=== PATIENT | female | born 1970 | race Caucasian/White ===

== ENCOUNTER 2018-04-30 14:51 | Outpatient (CLI) | payer BC, SELFPAY ==
--- NOTE | 2018-04-30 16:10 | DI.MAMMO_ITS ---
SYMPTOMS/DIAGNOSIS: SCREENING, Z12.39 MAMMOGRAM: Mammograms were interpreted according to the usual protocol including computer analysis with CAD system, tomosynthesis and C view imaging. The breasts are heterogeneously dense. No dominant mass or clumped microcalcification identified in either breast. Current examination is compared with the previous examinations including August 2015 and there has been no gross interval change in appearance in comparison with the previous studies. CONCLUSION: No specific evidence of malignancy at this time. Routine screening examinations are suggested at yearly intervals due to the family history of breast carcinoma. Category 1, breast density category C. MQSA ASSESSMENT OF FINDINGS: Negative. Category 1. Patient will receive a letter notifying them of these results. Bi-RADS category C. The breasts are heterogeneously dense, which may obscure small masses.
== END 2018-04-30 15:11 ==
PROVIDERS: PCP Nurse Practitioner; Visit Provider Nurse Practitioner
DX: Z12.31 Encounter for screening mammogram for malignant neoplasm of breast (principal); Z80.3 Family history of malignant neoplasm of breast
CPT/HCPCS: 77063; 77067

== ENCOUNTER 2018-11-30 09:47 | Outpatient (REF) | payer BC, SELFPAY ==
[2018-11-30 13:59] LABS: Anion Gap 9.8 mmol/L (3-11); BUN 16 mg/dL (7-18); CO2 27.2 mmol/L (21.0-32.0); CREATININE 0.72 mg/dL (0.55-1.02); Chloride 102 mmol/L (98-107); Cholesterol 187 mg/dL (50-200); Glucose 98 mg/dL (70-100); HDL Cholesterol 96 mg/dL (40-60); LDL CHOLESTEROL 78 mg/dL (<100); Magnesium 2.2 mg/dL (1.8-2.4); Potassium 4.6 mmol/L (3.5-5.1); Sodium 139 mmol/L (136-145); Triglyceride 29 mg/dL (30-150); Vitamin B12 348 pg/mL (193-986)
== END 2018-11-30 10:07 ==
LOC: NCHCN 09:47
PROVIDERS: PCP Nurse Practitioner; Visit Provider Nurse Practitioner Family
DX: K21.9 Gastro-esophageal reflux disease without esophagitis (principal); K22.70 Barrett's esophagus without dysplasia; Z00.00 Encounter for general adult medical examination without abnormal findings; Z13.220 Encounter for screening for lipoid disorders
CPT/HCPCS: 80048; 80061; 83721; 82607; 83735

== ENCOUNTER 2018-12-13 00:24 | Outpatient (CLI) | payer BC, SELFPAY ==
--- NOTE | 2018-12-13 14:00 | DI.RAD_ITS ---
SYMPTOMS/DIAGNOSIS: OSTEOPENIA, M85.80; H/O TOTAL HYSTERECTOMY, Z90.710 DEXA SCAN: DEXA scan was performed according to the usual protocol. The findings for the lumbar spine scanning are a T score of -2.2. Previous examination of January 2009 showed a T score of -1.6 for lumbar spine scanning. Left hip scanning shows a T score of -2.7 and a left femoral neck T score of - 2.5. Previous examination of 2008 showed left hip T score of -2.1. Left forearm scanning shows a T score of -2.3. CONCLUSION: Findings consistent with osteoporosis according to the WHO criteria. The lateral vertebral scanogram shows no evidence of a vertebral compression fracture.
== END 2018-12-13 00:44 ==
PROVIDERS: PCP Nurse Practitioner Family; Visit Provider Nurse Practitioner Family
DX: M81.0 Age-related osteoporosis without current pathological fracture (principal); M85.88 Other specified disorders of bone density and structure, other site
CPT/HCPCS: 77080

== ENCOUNTER 2019-01-04 10:08 | Day surgery (SDC) | payer BC, SELFPAY ==
[2019-01-04 10:36] VITALS: BP 105/65; PULSE 71; RESP 17; TEMP 36
[2019-01-04] MEDS: Lactated Ringers 1,000 ML 80 ML IV (10:55)
--- NOTE | 2019-01-04 12:15 | STOM_PTH ---
PATIENT: Noemi Malave LOC: [facility] U#:[id number] AGE/SX: 48/F ROOM: RE01/04/[address]: Ml Burks : 1970 BED: DIS: 01/04/2019 SPEC #: [id number] RECD: 01/04/19 16:39 STATUS: MAKAYLA RE #: [id number] JANET: 01/04/19 12:[address]: Ml Burks DEPT: Surgical Specimen RECD BY: Emily Benton ENTERED: 01/04/19 16:41 SP TYPE: STOMACH OTHR DR: Peggy Marroquin Tissues: 1 - BIOPSY BOWEL 2 - STOMACH BIOPSY 3 - STOMACH BIOPSY 4 - ESOPHAGUS BIOPSY Procedures: GROSS AND MICRO LEVEL 4 Comments: [id number]
--- NOTE | 2019-01-04 12:44 | W.PM.DSUDISC ---
Discharge Plan Disposition Patient Disposition: HOME Condition: Good Discharge Details Reason For Visit: EGD Attending Provider: Ml Burks Primary Care Provider: Peggy Marroquin Home Meds and New Rx's Prescriptions: New Dexilant 60 mg capsule,biphase delayed releas 60 mg PO DAILY Qty: 30 RF: 12 sucralfate [Carafate] 1 gram tablet 1 gm PO QID PRN PRN (Reason: reflux) Qty: 90 RF: 12 nicotine 7 mg/24 hr patch 24 hour 1 patch TD Q24H Qty: 30 RF: 12 Continued Adult Multivitamin Gummies 200 mcg tablet,chewable 200 mcg PO DAILY RF: 0 citalopram 40 MG tablet 40 mg PO DAILY RF: 0 Discontinued pantoprazole [Protonix] 20 MG tablet,delayed release (DR/EC) 20 mg PO DAILY RF: 0 Discharge Instructions Instructions: Cigarette Smoking and Your Health (GEN) Additional Instructions: Findings:Raymond's esophagitis /bile reflux gastritis will send letter w/ Bx results in 2-3 wks Follow up:repeat scope in 3yrs time-path pd stop smoking change meds to carafate adn dexilant Please call if you develop: fevers >101.5 Nausea or Vomiting Abdominal pain that is not transient DAY SURGERY UNIT POST COLONOSCOPY INSTRUCTIONS 1. Because there will be medication in your system for the next 24 hours, you may feel a little sleepy. Your coordination will be affected. Therefore: a. Do not drive or operate dangerous equipment for 24 hours. b. Do not drink alcohol beverages for 24 hours (not even beer). c. Plan to go home and rest for the day. 2. Generally there are no restrictions on your activity after a day or so has gone by, but you may feel a bit fatigued for a few days. 3 After you arrive home you may have a light meal and return to a normal diet as you can tolerate it without feeling sick to your stomach. 4. After surgery, you may feel pain or discomfort. This should be only transient, but if it persists please contact your doctor. 5. If there are any questions regarding the findings of your procedure, please feel free to contact your doctor. 6. If you are unable to contact your doctor with a problem, contact the hospital at [phone]. 7. Continue all your regular medications unless directed otherwise. I understand the above instructions and have no questions. Signature of Patient or Responsible Adult Escort Date/Time Name of Responsible Adult Escort Signature of Nurse Date/Time Stand Alone Forms: DSU Post EGD Instructions, Press Sue (DSU) Activity:: no heavy lifting or strenuous acitivty x 24 hrs Diet:: sm lt meals x 24 hrs Discharge Orders Discharge Orders: Discharge Order (Routine); Ordered 01/04/19 Ordered By: Ml Burks DS: Diagnosis Discharge Diagnosis (1) Raymond's esophagus with esophagitis: Status: Acute (2) Bile reflux gastritis: Status: Acute
--- NOTE | 2019-01-04 13:08 | W.PM.ENDDOP ---
Date of service: 01/04/19 Time of Service: 13:08 Endoscopy Report DATE OF PROCEDURE: 01/04/19 PRE-OP DIAGNOSIS: wylie's POST-OP DIAGNOSIS: other (esophagitis and gastritis/bile reflux ) SURGEON: Ml Burks ANESTHESIA: GETA ESTIMATED BLOOD LOSS: 2 PATHOLOGY: other COMPLICATIONS: None DISPOSITION: same day PROCEDURE DESCRIPTION: After informed consent was obtained the patient was take to the procedure room and placed in a supine position. Monitors were applied and a time out was done. The patients name, date of , procedure type, allergies to medications and metal in their body was reviewed. A bite block was placed and the patient was sedated. Once sedated and comfortable the gastroscope was advanced through the oropharynx which was grossly normal into the esophagus. The proximal and mid-esophagus were nl. In the distal esophagus there was erythema and irritation. There were x2 tongues of Barett's adn moderate esophagitis. There was reflux of bile into the stomach- and moderate gastritis visible. The scope was advanced into the stomach and through the pylorus into the 3rd portion of the duodenum. The duodenum was noted to be nl. Biopsies were done. The scope was retracted back into the stomach and biopsies were done to rule out H. pylori. There were no ulcers. The scope was retroflexed. The cardia and fundus were noted to be normal. There was no hiatal hernia noted. The scope was retracted back into the esophagus and biopsies were done of the GE junction to rule out Wylie's. The Z line was regular. The GE junction was at 38 cm. The scope was removed and the patient was woken up and taken back to [facility] in stable condition. Follow up: Rx changed to Dexilant (from protonix) and added carafate. repeat in 3 yrs. stop smoking- pt given Rx for patches.
[2019-01-04 14:00] VITALS: BP 90/62; PULSE 70; RESP 16; TEMP 36.1; O2SAT 100
== END 2019-01-04 14:15 | disposition home or self-care (01) ==
PROVIDERS: PCP Nurse Practitioner Family; Visit Provider Surgery
PROC: 0DJ68ZZ Inspection of Stomach, Via Natural or Artificial Opening Endoscopic (ICD-10-PCS; CPT 43235; principal; 2019-01-04 11:00)
DX: K22.70 Barrett's esophagus without dysplasia (principal); K31.89 Other diseases of stomach and duodenum; K20.9 Esophagitis, unspecified; F17.210 Nicotine dependence, cigarettes, uncomplicated
CPT/HCPCS: 43239; 88305

== ENCOUNTER 2020-07-01 19:18 | Emergency (ER) | payer BC, SELFPAY ==
[2020-07-01 19:23] VITALS: BP 129/79; PULSE 78; RESP 22; TEMP 36.8; O2SAT 98
--- NOTE | 2020-07-01 19:39 | ED.GENADUL_ITS ---
Discharge Plan Disposition Patient Disposition: HOME Condition: Good Discharge Details Clinical Impression: Contusion of foot Primary Care Provider: Peggy Marroquin ED Provider: Haley Guerrero Home Meds and New Rx's Prescriptions: Continued Adult Multivitamin Gummies 200 mcg tablet,chewable 200 mcg PO DAILY RF: 0 lansoprazole 30 mg capsule,delayed release(DR/EC) 30 mg PO BID Qty: 60 RF: 12 citalopram 40 MG tablet 40 mg PO DAILY RF: 0 Dexilant 60 mg capsule,biphase delayed releas 60 mg PO DAILY Qty: 30 RF: 12 sucralfate [Carafate] 1 gram tablet 1 gm PO QID PRN PRN (Reason: reflux) Qty: 90 RF: 12 nicotine 7 mg/24 hr patch 24 hour 1 patch TD Q24H Qty: 30 RF: 12 Discharge Instructions Instructions: Foot Contusion (ED) Additional Instructions: Encourage rest, ice, elevation. Tylenol and/or ibuprofen as needed for discomfort. You may continue the postoperative shoe to help with discomfort. If your pain is not completely resolved in the next 2 weeks please follow-up with primary care. If you develop any new or worsening symptoms please seek care urgently once again. Referrals: Peggy Marroquin [Primary Care Provider] - Medical Decision Making Patient is pleasant 49-year-old female presents with chief complaint of injured right foot. She reports that she dropped an air Fryer on her foot. Is i ndicating the medial side of the foot is area of discomfort. She denies any numbness but states that she can occasionally have tingling. Pain is worse with dorsiflexion. No other injuries from the incident. On exam, patient appears nontoxic. I not see any large amount of swelling or ecchymosis. She is tender particularly with dorsiflexion against resistance along the proximal aspect of his great toe extending up into the midfoot. She has no pain with palpation of the plantar aspect of the foot. Sensation is intact. 2+ distal pulses and good capillary refill. Patient declines analgesic s, states she has advil at home. X-ray was obtained and reviewed by radiologist: FINDINGS: Bones/joints: No acute displaced fractures or subluxations are identified. The joint spaces are maintained without degenerative changes. Osseous mineralization is normal. The plantar arch is maintained. Soft tissues: No soft tissue swelling is identified. IMPRESSION: No acute displaced fractures or subluxations identified. Discussed the findings with the patient. Patient will be fitted with a postoperative shoe to help with discomfort as ambulation great exacerbates her discomfort. Encourage rest, ice and elevation. Tylenol and ibuprofen for comfort. All questions concerns were addressed and she is in agreement this plan. HPI General Mode of arrival: ambulatory . Date/Time Provider Initiated Documentation: 07/01/20 19:27 . Limitations to Documentation: no limitations . Information obtained by: patient and RN notes reviewed . History of Present Illness 49 year old F presents to the emergency department with the chief complaint of right foot pain, described as severe, with intensity rated at 8. Quality is described as aching, and is localized to the right and lower e xtremity. Patient reports no radiation. Patient started experiencing this minute(s) and it has been constant. Immobilization improves symptom(s), Movement worsens symptoms (dorsiflexion) . Patient notes no other symptoms.. Patient did receive the following treatments prior to arrival, none Related Data Home Medications Medication Instructions Recorded Confirmed citalopram 40 mg PO DAILY 07/21/13 01/14/19 multivitamin with minerals-folic 200 mcg PO DAILY tab 12/28/18 01/14/19 acid 200 mcg chewable tablet Dexilant 60 mg PO DAILY #30 cap 01/04/19 01/14/19 nicotine 1 patch TD Q24H #30 each 01/04/19 01/14/19 sucralfate [Carafate] 1 gm PO QID PRN PRN #90 tab 01/04/19 01/14/19 lansoprazole 30 mg capsule,delayed 30 mg PO BID #60 cap 01/07/19 01/14/19 release Previous Rx's Medication Instructions Recorded Dexilant 60 mg PO DAILY #30 cap 01/04/19 nicotine 1 patch TD Q24H #30 each 01/04/19 sucralfate [Carafate] 1 gm PO QID PRN PRN #90 tab 01/04/19 lansoprazole 30 mg capsule,delayed 30 mg PO BID #60 cap 01/07/19 release Allergies Allergy/AdvReac Type Severity Reaction Status Date / Time meperidine HCl [From Demerol] AdvReac Mild Nausea Verified 01/14/19 09:33 General Stated Complaint: Orthopedic OLAMIDE: 4 Review of Systems Constitutional Constitutional: Reports as per HPI, Denies chills, Denies fever(s), Denies headache(s) and Denies weakness ENT Ears, Nose, Mouth, and Throat: Denies headache(s) Cardiovascular Cardiovascular: Reports as per HPI Respiratory Respiratory: Reports as per HPI and Denies cough Musculoskeletal Musculoskeletal: Reports as per HPI and Denies tingling Integumentary/Breasts Skin/Breast: Reports as per HPI, Denies rash and Denies wounds Neurologic Neurologic: Reports as per HPI, Denies headache(s), Denies tingling, Denies paresthesias and Denies weakness PFS Medical History Anxiety and depression Raymond's esophagus with esophagitis Barretts esophagus Bilateral hearing loss Bile reflux gastritis GERD (gastroesophageal reflux disease) History of postoperative nausea and vomiting Osteopenia Tobacco use Surgical History History of colonoscopy History of esophagogastroduodenoscopy (EGD) History of shoulder surgery 2017 L History of total hysterectomy S/P herniorrhaphy supraumbilical, s/p incarceration. Dr Cristiano Harding, 1970 Social History Smoking/Tobacco Use Status: Current every day Tobacco Type: cigarettes Tobacco: How many years used: 30 Smoking risk assessment performed?: Yes Alcohol Intake: current Alcohol Intake frequency: 0-2 drinks per day Alcohol type: beer and wine Drug use: Never Substance use type: does not use Do you feel safe at home: Yes Do you feel safe in your relationship?: Yes Exam Const General: cooperative, healthy appearing, comfortable, no acute distress, well developed and well groomed Nutritional Appearance: average body habitus and well nourished Orientation: alert and awake Resp Effort & Inspection: normal respiratory effort, able to speak in complete sentences and no respiratory distress Cardio Rate: regular rate Rhythm: regular rhythm Skin General skin exam: no rashes or lesions noted Lesions: no lesions Rashes: no rashes Trauma: no lacerations or abrasions Neuro General: patient alert and patient awake Cognition: normal cognition Speech: speech normal Gait: normal gait Motor: muscle tone normal throughout Sensory Exam: no sensory deficits noted Extrem Ankle/foot/toe images: 1. Area of discomfort. Worse with dorsiflexion and extension against resistance of the great toe. No plantar pain. Normal cap refill. 2+ distal pulses. Full ROM of ankle and toes Psych Appearance: grossly normal and well kempt Mental Status: mental status grossly normal Speech and Movement: speech and movement normal Course Vital Signs Vital signs: Vital Signs Temperature 36.8 C 07/01/20 19:23 Pulse 78 07/01/20 19:23 Respiratory Rate 22 07/01/20 19:23 Blood Pressure 129/79 07/01/20 19:23 Pulse Oximetry 98 07/01/20 19:23 Temperature 36.8 C 07/01/20 19:23 Temperature Source Temporal Artery Scan 07/01/20 19:23 Pulse 78 07/01/20 19:23 Respiratory Rate 22 07/01/20 19:23 Respiratory Effort 07/01/20 19:26 Blood Pressure 129/79 07/01/20 19:23 Blood Pressure Position Sitting 07/01/20 19:23 Pulse Oximetry 98 07/01/20 19:23 Oxygen Delivery Method Room Air 07/01/20 19:23 Oxygen Flow Rate 0 07/01/20 19:23 Pain Level 8 07/01/20 19:28
--- NOTE | 2020-07-01 19:56 | DI.RAD_ITS ---
EXAM: XR FOOT RT COMPLETE CLINICAL HISTORY: dropped air fryer on foot TECHNIQUE: COMPARISON: No exams were available for comparison FINDINGS: Three views were obtained. There is no evidence of fracture. IMPRESSION: RADIATION DOSE DELIVERED: Total DLP Total DLP
--- NOTE | 2020-07-01 20:04 | DI.VRAD_ITS ---
PROCEDURE INFORMATION: Exam: XR Right Foot Complete Exam date and time: 07/01/2020 7:40 PM Age: 49 years old Clinical indication: Injury or trauma; Other: Blunt trauma; Right; Injury date: 07/01/20; Injury details: Dropped an air fryer on foot TECHNIQUE: Imaging protocol: XR Right foot. Views: 3 or more views. COMPARISON: No relevant prior studies available. FINDINGS: Bones/joints: No acute displaced fractures or subluxations are identified. The joint spaces are maintained without degenerative changes. Osseous mineralization is normal. The plantar arch is maintained. Soft tissues: No soft tissue swelling is identified. IMPRESSION: No acute displaced fractures or subluxations identified. Dictated and Authenticated by: Abran Kraus MD. Ordering:DORA De Leon MD
== END 2020-07-01 20:33 | disposition home or self-care (01) ==
PROVIDERS: Emergency Provider Physician Assistant; PCP Nurse Practitioner Family
DX: S90.31XA Contusion of right foot, initial encounter (principal); W20.8XXA Other cause of strike by thrown, projected or falling object, initial encounter
CPT/HCPCS: 99283; 73630

== ENCOUNTER 2021-01-15 01:17 | Outpatient (CLI) | payer BC, SELFPAY ==
--- NOTE | 2021-01-15 | DI.MAMMO_ITS ---
Exam(s) MAMMO SCREENING EXAM: MAMMO SCREENING CLINICAL HISTORY: SCREENING, Z12.31 TECHNIQUE: Bilateral full field digital CC and MLO mammographic images were obtained with 3D tomosyn thesis and utilizing computer aided detection (CAD). COMPARISON: Available for comparison. FINDINGS: Masses/Architectural Distortion: None seen. Microcalcifications: No suspicious pleomorphic-type are seen. Skin Thickening/Nipple Retraction: None. IMPRESSION: 1. No significant interval change with no specific features of malignancy noted. 2. Unless there is more urgent need, screening mammography is recommended, as per [place] [employer] guidelines. BI-RADS Category 1 - Negative Breast Density - Category C - Heterogeneously dense Breast density category C or D implies that the patient has dense breast tissue. Dense breast tissue is very common and is not abnormal but dense breast tissue can make it harder to find cancer on a ma mmogram. Also, dense breast tissue may increase their breast cancer risk. This information about the result of the mammogram report was provided to the patient to raise their awareness. Use this report when you speak with the patient about their risks for breast cancer, which includes their family hist ory. At that time, you may recommend for more screening tests (Ultrasound or MRI) as they might be us eful based on their risk. A negative radiographic report should not delay biopsy if a dominant or clinically suspicious mass is present. Up to ten percent of cancers are not identified on mammography. A negative report may reinforce clinical impression. Adenosis and dense breasts may obscure an underlying neoplasm. False positive reports average 6 to 10%. Patient will receive a letter notifying them of these results.
== END 2021-01-15 01:37 ==
PROVIDERS: PCP Nurse Practitioner Family; Visit Provider Nurse Practitioner Family
DX: Z12.31 Encounter for screening mammogram for malignant neoplasm of breast (principal); R92.2 Inconclusive mammogram
CPT/HCPCS: 77063; 77067

== ENCOUNTER 2021-02-05 09:47 | Outpatient (CLI) | payer BC, SELFPAY ==
--- NOTE | 2021-02-05 | DI.RAD_ITS ---
Exam(s) XR CERVICAL SPINE COMP 4-5V EXAM: XR CERVICAL SPINE COMP 4-5V CLINICAL HISTORY: NECK PAIN M54.2. TECHNIQUE: 2D digital imaging was performed. COMPARISON: No exams were available for comparison FINDINGS: BONES: No fracture or destructive lesion. Vertebral bodies are unremarkable. DISKS: Moderate C 5 6 disc space narrowing and uncovertebral osteophytes causing mild bilateral neura l foraminal encroachment.. The remaining intervertebral disc spaces are maintained. ALIGNMENT: Cervical spinal alignment is within normal limits. The odontoid and atlantoaxial articulat ions are normal. SOFT TISSUE: Normal. The lung apices are clear. IMPRESSION: Degenerative disc changes at C5-6 causing mild bilateral neural foraminal narrowing. DATA REPOSITORY: RADIATION DOSE DELIVERED:
== END 2021-02-05 10:07 ==
PROVIDERS: PCP Nurse Practitioner Family; Visit Provider Nurse Practitioner Family
DX: M47.812 Spondylosis without myelopathy or radiculopathy, cervical region (principal)
CPT/HCPCS: 72050

== ENCOUNTER 2021-05-13 11:09 | Outpatient (REF) | payer BC, SELFPAY ==
[2021-05-15 11:58] LABS: COVID-19 RT-PCR UVMMC Result Negative (Negative)
== END 2021-05-13 11:10 | disposition home or self-care (01) ==
LOC: LBN 11:09
PROVIDERS: PCP Nurse Practitioner Family; Visit Provider Physician Assistant Medical
DX: Z20.822 Contact with and (suspected) exposure to COVID-19 (principal); J06.9 Acute upper respiratory infection, unspecified
CPT/HCPCS: U0003

== ENCOUNTER 2022-07-13 17:09 | Outpatient (REF) | payer BC, SELFPAY ==
[2022-07-13 21:40] LABS: HCT 41.7 % (36.0-46.0); HGB 14.2 g/dL (11.2-15.7); MCH 33.6 pg (27.0-33.0); MCHC 34.1 % (32.0-36.0); MCV 99 fL (80-95); Platelet Count 281 10^3/uL (130-400); RBC 4.22 10^6/uL (3.93-5.22); RDW 11.5 % (11.7-14.6); WBC 10.13 10^3/uL (4.4-10.8)
[2022-07-13 22:12] LABS: Anion Gap 6.3 mmol/L (3-11); BUN 14 mg/dL (7-18); CO2 31.7 mmol/L (21.0-32.0); CREATININE 0.7 mg/dL (0.55-1.02); Calcium 9.5 mg/dL (8.5-10.1); Chloride 102 mmol/L (98-107); Estimated GFR 104.65 (mL/min/1.73m2); Glucose 95 mg/dL (74-106); Potassium 3.8 mmol/L (3.5-5.1); Sodium 140 mmol/L (136-145); TSH (W/Ref FT4) 1.05 uIU/mL (0.36-3.74)
== END 2022-07-13 17:10 | disposition home or self-care (01) ==
LOC: NCHCN 17:09
PROVIDERS: PCP Nurse Practitioner Family; Visit Provider Family Medicine
DX: F41.8 Other specified anxiety disorders (principal); M81.0 Age-related osteoporosis without current pathological fracture
CPT/HCPCS: 80048; 85027; 84443

== ENCOUNTER 2022-08-23 11:24 | Day surgery (SDC) | payer BC, SELFPAY ==
--- NOTE | 2022-08-22 20:44 | W.PM.DSUDISC ---
Date of service: 08/23/22 Time of Service: 14:22 Discharge Plan Disposition Patient Disposition: Home Condition: Good Discharge Details Reason For Visit: EGD and Colonoscopy Attending Provider: Tima Davis Primary Care Provider: Peggy Marroquin Home Meds and New Rx's Prescriptions: Continued ondansetron 8 mg tablet,disintegrating 8 mg PO Q8H PRN (Reason: nausea and vomiting) Qty: 4 0RF Rx Instructions: Take 1 tablet by mouth at the beginning of your bowel prep. Take another tablet by mouth every 8 hours as needed for nausea. estradiol [Vagifem] 10 mcg tablet 10 mcg vaginal .weekly fluticasone propionate 50 mcg/actuation spray,suspension 2 spray intranasal DAILY Rx Instructions: administer into each nostril cholecalciferol (vitamin D3) 10 mcg (400 unit) capsule 20 mcg PO DAILY omeprazole 40 mg capsule,delayed release(DR/EC) 40 mg PO DAILY Botox Cosmetic 50 unit recon soln 10 unit IM ONCE Rx Instructions: Per ENT for migraines unsure of dose citalopram 40 MG tablet 40 mg PO DAILY fluconazole [Diflucan] 150 mg tablet 150 mg PO ONCE PRN Rx Instructions: as a single dose. Discontinued bisacodyl [Dulcolax (bisacodyl)] 5 mg tablet,delayed release (DR/EC) 5 mg PO ONCE Qty: 4 0RF Rx Instructions: Take according to provider's instructions for colonoscopy prep. polyethylene glycol 3350 17 gram/dose powder 17 g PO ONCE Qty: 238 0RF Rx Instructions: To be taken as directed by prescriber's office for colonoscopy prep. Discharge Instructions Instructions: Raymond Esophagus (GEN), Colorectal Polyps (GEN) Additional Instructions: 1. If tolerated, consume a soft, low fiber diet for 1-2 days. 2[address] Do not drive, drink alcohol, operate machinery, make critical decisions, or do activities that require coordination or balance for 24 hours. 3. Because air was put into your colon during the procedure, expelling air from your rectum (passing gas or farting) is normal. 4. You may not have a bowel movement for 1-3 days because of the colonoscopy prep. This is normal. 5. You may experience a sore throat for 24 to 48 hours. You may use throat lozenges or gargle with warm salt water to relieve the discomfort. 6. Because air was put into your stomach during the procedure, you may experience some belching. 7. Go directly to the emergency room if you notice any of the following: Develop chills (warm to touch), or if you have a thermometer and your temperature is above 101 Difficulty breathing or difficultly swallowing Persistent vomiting Severe abdominal pain, other than gas cramps Severe chest pain Black, tarry stools Any bleeding ? exceeding one tablespoon 8. Call your physician if the site where your intravenous was started becomes red, swollen, painful, and warm to touch. 9. Your physician has reviewed your pre-procedure medications. Please continue to take those medications as previously ordered. You will be given specific information/education regarding any changes to your medications before leaving. Stand Alone Forms: Carl Rogers (DSU) Activity:: Activity as Tolerated Diet:: As Tolerated Discharge Orders Discharge Orders: Discharge Order (Routine); Ordered 08/22/22 Ordered By: Tima Davis DS: Diagnosis Discharge Diagnosis (1) Raymond's esophagus with esophagitis: Status: Acute Asessment and Plan: Zach, we were able to complete your upper and lower endoscopies today. Your duodenum and stomach looked totally normal. You do have short segment Raymond's esophagus. I performed four-quadrant biopsies of the abnormal area. Once I have the results of the biopsy, I will let you know what to do next. You should continue to take your omeprazole in the meantime. Your colonoscopy also went very well. Your prep was excellent. I found 1 polyp in your large intestine, and I removed it today. When I have the results of that polypectomy, I will let you know.
--- NOTE | 2022-08-22 20:46 | ENDO_ITS ---
Date of service: 08/23/22 Time of Service: 14:28 Endoscopy Report DATE OF PROCEDURE: 08/23/22 PRE-OP DIAGNOSIS: Screening colonoscopy and Barretts Esophagus POST-OP DIAGNOSIS: other (Short segment Raymond's esophagus, colon polyp) PROCEDURE: EGD with biopsies and colonoscopy with polypectomy SURGEON: Tima Davis ANESTHESIA TYPE: General:No Airway ESTIMATED BLOOD LOSS: 15 PATHOLOGY: other (Four-quadrant biopsies of Raymond's esophagus, colon polyp at 90 cm) COMPLICATIONS: None DISPOSITION: same day INDICATIONS: Noemi is a 51-year-old woman with longstanding gastroesophageal reflux disease. She needs surveillance endoscopy for Raymond's esophagus. She also needs a screening colonoscopy PREP: Miralax/Dulcolax PROCEDURE START TIME: 13:10 PROCEDURE END TIME: 13:40 COLONOSCOPY RETRACTION TIME: 18 FINDINGS: Short segment Raymond's esophagus extending from 46 to 47 cm, colon polyp at 90 cm PROCEDURE DESCRIPTION: After the initiation of monitored anesthetic care, and with the assistance of a bite block, I advanced a standard gastroscope through the mouth past the hypopharynx and into the esophagus.? Under the direct vision of the scope, I advanced down the esophagus into the stomach.? Once I entered the stomach, I per formed a brief inspection, followed by retroflexion towards the gastric cardia.? This appeared normal.? After that, I gently advanced the scope around the incisura angularis and examined the pylorus.? This also appeared normal.? Next, I advanced the scope through the pylorus into the duodenum.? The mucosa was pink and healthy appearing.? There were no abnormalities.? I was able to visualize bile draining into the duodenum through the ampulla Vater. ?Next, I began retracting the endoscope.? Again, I returned to the stomach which was carefully examined once again.? I then gently desufflated some of the stomach, and withdrew the endoscope into the distal esophagus. There was irregularity of the Z-line around 46 cm, with the true GE junction around 47 cm. I performed four- quadrant biopsies of the Raymond's esophagus using cold forceps. There was minimal bleeding. ?Finally, I withdrew the scope along the length of the esophagus taking great care to examine the entirety of the mucosa.? I did not appreciate any abnormalities. Next, we moved Noemi into the left lateral decubitus position, I began by performing an external anorectal exam.? Perineum and skin were normal, as was the anal verge.? There was no evidence of external hemorrhoids.? Next, I performed a digital rectal exam.? I did not appreciate any abnormal findings.? Next, I advanced a colonoscope into the rectal vault.? I performed retroflexion.? This was normal.? Using insufflation, I then advanced the colonoscope beyond the rectal folds and into the sigmoid colon before advancing towards the cecum.? The quality of the prep was excellent.? The scope was noted to be in the cecum by identification of the ileocecal valve and appendiceal orifice.? I then began withdrawing the colonoscope using repeated irrigation as necessary for full evaluation of the colonic mucosa. Around 90 cm from the anal verge I identified a 0.5 cm polyp. ?It appeared sessile in character. ?I was able to remove this with a cold forceps. ?I examined the site, and there was minimal bleeding. ?Once this was completed, I continued to withdraw the scope and examine the remainder of the colonic mucosa.?Once the scope was withdrawn to the level of the rectum, great care was taken to examine portions of the rectal folds.? Finally, the scope was withdrawn and the patient was brought to the same-day surgery recovery unit as the anesthetic wore off. ?The findings and instructions were shared with the patient prior to discharge.
[2022-08-23 11:48] VITALS: BP 126/79; PULSE 65; RESP 16; TEMP 36.7; O2SAT 99
[2022-08-23] MEDS: Lactated Ringers 1,000 ML 80 ML IV (12:15)
--- NOTE | 2022-08-23 12:24 | ANES.PREOP_ITS ---
General Info Date of Service Date Performed: 08/23/22 Height: 5 ft 1 in Weight: 53.3 kg Body Mass Index (BMI): 22.1 Surgical Procedure: Operation Date: 08/23/22 12:35 Proposed Procedure Side Surgeon p Colonoscopy/Gastroscopy Tima Davis MD Meds Allergies and Home Medications Allergies Allergy/AdvReac Type Severity Reaction Status Date / Time Proton Pump Inhibitors Allergy Unknown Verified 08/22/22 14:30 meperidine HCl [From Demerol] AdvReac Mild Nausea Verified 08/22/22 14:30 Home Medication Medication Instructions Recorded citalopram 40 mg tablet 40 mg PO DAILY 07/21/13 cholecalciferol (vitamin D3) 10 20 mcg PO DAILY 01/05/21 mcg (400 unit) capsule estradiol 10 mcg vaginal tablet 10 mcg vaginal .weekly 01/05/21 (Vagifem) fluticasone propionate 50 2 spray intranasal DAILY 01/05/21 mcg/actuation nasal spray,suspension omeprazole 40 mg capsule,delayed 40 mg PO DAILY 01/05/21 release onabotulinumtoxinA (cosmetic) 50 10 unit IM ONCE 08/04/22 unit intramuscular solution (Botox Cosmetic) ondansetron 8 mg disintegrating 8 mg PO Q8H PRN nausea and 08/08/22 tablet vomiting #4 tabs fluconazole 150 mg tablet 150 mg PO ONCE PRN 08/22/22 (Diflucan) Current Visit Medications: Current Medications Generic Name Dose Route Start Last Admin Trade Name Freq PRN Reason Stop Dose Admin Hyoscyamine Sulfate 0.125 mg 08/22/22 20:43 Hyoscyamine 0.125 Mg Sl/Oral/Chew SL DIRECTED PRN Ringer's Solution 1,000 mls @ 80 mls/hr 08/23/22 06:00 IV 09/21/22 23:59 INF[facility]ION [facility] IV Miscellaneous Supplies 1 each 08/23/22 06:00 Iv Access IV 09/21/22 23:59 DIRECTED [facility] Ondansetron HCl 4 mg 08/22/22 20:43 Ondansetron 4 Mg/2 Ml Vial IVP Q4H PRN PRN Nausea / Vomiting Sodium Chloride 0 ml 08/23/22 06:00 Normal Saline Flush 10 Ml Syr IV 09/21/22 23:59 PRN PRN Sodium Chloride 0 ml 08/23/22 06:00 Normal Saline 10 Ml Vial IJ 09/21/22 23:59 DIRECTED PRN Sterile Water 0 ml 08/23/22 06:00 Water,Injection,Sterile 10 Ml Vial IJ 09/21/22 23:59 DIRECTED PRN PFSH Active Problems Active Problems: Problem Status Onset Code Endometriosis N80.9 Osteoporosis M81.0 Screening for colon cancer Z12.11 Lateral epicondylitis, right elbow M77.11 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 Raymond's esophagus with esophagitis K22.70, K20.9 Adhesive capsulitis of left shoulder 08/28/17 M75.02 Impingement syndrome, shoulder, left 04/24/17 M75.42 Incomplete tear of left rotator cuff 06/26/17 M75.112 Superior glenoid labrum lesion of left shoulder, initial encounter 04/24/17 S43.432A Superior glenoid labrum lesion of left shoulder, subsequent encounter 04/24/17 S43.432D Tendinitis of left rotator cuff 04/24/17 M75.82 Medical History Medical History Anxiety and depression Bilateral hearing loss GERD (gastroesophageal reflux disease) History of postoperative nausea and vomiting Osteopenia Refractory migraine without aura Seasonal allergies Tobacco use Surgical History Surgical History History of colonoscopy History of esophagogastroduodenoscopy (EGD) History of shoulder surgery 2017 L History of total hysterectomy S/P herniorrhaphy supraumbilical, s/p incarceration. Dr Cristiano Harding, 1970 Tobacco Smoking/Tobacco Use Status: Current every day Tobacco Type: cigarettes Smoking cigarettes per day: 10 Alcohol Alcohol Intake: current Alcohol intake frequency: 0-2 drinks per day Alcohol type: beer and wine Substance Use Substance use: Never Substance use type: does not use Vital Signs and Lab Results Vital Signs Most Recent Vital Signs in EMR: Most Recent Vital Signs Temp Pulse Resp BP Pulse Ox 36.7 C 65 16 126/79 99 08/23/22 11:48 08/23/22 11:48 08/23/22 11:48 08/23/22 11:48 08/23/22 11:48 Lab Results Blood Type / Crossmatch: No Data to Display Complete Blood Count: No Data to Display Complete Metabolic Panel: No Data to Display Liver Function Panel: No Data to Display Coagulation Panel: No Data to Display Cardiac Panel: No Data to Display Arterial Blood Gas: No Data to Display Venous Blood Gas: No Data to Display Pancreas Panel: No Data to Display Thyroid Panel: No Data to Display Infectious Disease: No Data to Display Blood Cultures: No Data to Display Toxicology Panel: 2 No Data to Display Panel: No Data to Display Anesthesia Assessment and Plan Anesthesia History Personal History: No History of Anesthesia Complications Family History: Other Exercise Tolerance Exercise Tolerance: Metabolic Equivalents>4 Pertinent Negatives Pertinent Negatives: No Major Cardiovascular Symptoms or Complaints and No Major Pulmonary Symptoms or Complaints Cardiac & Pulmonary Exam Cardiac Exam: Normal S1/S2 Heart Sounds Pulmonary Exam: Clear Bilateral Breath Sounds Implantable Cardiac Device Does patient have a Pacemaker or an ICD?: No Airway Exam Known Difficult Airway: No Mallampati Class: 1 Mouth Opening: Normal (> 3cm) Thyromental Distance: Greater than 3 cm Neck Range of Motion: Full ROM Neck Circumference: Normal Teeth Condition: Normal Dentition ASA Classification ASA Score: ASA 2 Emergency Case?: No NPO Status NPO Status: NPO Clears >2 hours, Solids >8 hours Status Status: History of Hysterectomy Anesthesia Plan Resuscitation Status: Full Code Anesthesia Technique: General Anesthesia Airway Planned: Natural Airway Monitors Used: Standard Monitors
[2022-08-23 12:28] VITALS: BMI 22.1
--- NOTE | 2022-08-23 13:13 | BOWEL_PTH ---
PATIENT: Noemi Malave LOC: [facility] U#:[id number] AGE/SX: 51/F ROOM: RE08/23/[address]: Tima Davis MD : 1970 BED: DIS: 08/23/2022 SPEC #: [id number] RECD: 08/23/22 17:35 STATUS: MAKAYLA REQ #: [id number] JANET: 08/23/22 13:[address]: Tima Davis DEPT: Surgical Specimen RECD BY: Emily Benton ENTERED: 08/23/22 17:35 SP TYPE: Bowel OTHR DR: Peggy Marroquin Tissues: 1 - ESOPHAGUS BIOPSY 2 - BIOPSY BOWEL Procedures: GROSS AND MICRO LEVEL 4 Comments: [id number]
[2022-08-23 13:47] VITALS: BP 111/74; PULSE 71; RESP 16; TEMP 36.5; O2SAT 100
--- NOTE | 2022-08-23 14:08 | W.ANESPOSTOP ---
Postoperative Evaluation Date, Time and Location Date Performed: 08/23/22 Time Performed: 14:08 Patient Location: Day Surgery Unit Vital Signs Most Recent Imported Vital Signs: Most Recent Vital Signs Temp Pulse Resp BP Pulse Ox 36.5 C 71 16 111/74 100 08/23/22 13:47 08/23/22 13:47 08/23/22 13:47 08/23/22 13:47 08/23/22 13:47 Pain Score Most Recent Pain Score: Most Recent Pain Score Pain Level 0 08/23/22 13:47 Assessment Mental Status: Awake (Alert & Oriented to Patient Baseline) Airway and Respiratory Function: Patent airway with normal (patient baseline) respiratory exam Cardiovascular Function: Hemodynamically Stable Hydration Status: Adequately Hydrated Nausea & Vomiting: No Nausea or Vomiting Pain: Pt. Denies Any Pain Peripheral Nerve Block: Patient did not receive a nerve block Postoperative Comments:: Pt. had brown emesis event during withdrawal of colonoscopy, suctioned. No desaturation. Pt. feels 100% normal with no respiratory symptoms.
[2022-08-23 14:20] VITALS: BP 114/81; PULSE 64; RESP 16; TEMP 36.5; O2SAT 100
== END 2022-08-23 14:50 | disposition home or self-care (01) ==
PROVIDERS: PCP Nurse Practitioner Family; Visit Provider Surgery
PROC: (CPT 45380; principal; 2022-08-23 12:30)
DX: K22.70 Barrett's esophagus without dysplasia (principal); K63.5 Polyp of colon; Z12.11 Encounter for screening for malignant neoplasm of colon; K21.9 Gastro-esophageal reflux disease without esophagitis
CPT/HCPCS: 45380; 43239; 88305; J2405; J2704

== ENCOUNTER 2022-10-03 02:05 | Outpatient (CLI) | payer BC, SELFPAY ==
--- NOTE | 2022-10-03 | DI.MAMMO_ITS ---
Exam(s) MAMMO SCREENING EXAM: MAMMO SCREENING CLINICAL HISTORY: SCREENING, Z12.31 TECHNIQUE: Mammograms were interpreted according to the usual protocol including computer analysis w Angle CAD system, tomosynthesis and C-view imaging. COMPARISON: 2015 through 2020 FINDINGS: The breasts are composed of heterogeneously dense fibroglandular densities, Breast Density category C . No suspicious masses or suspicious microcalcifications are seen. No skin thickening or abnormal axillary lymph nodes are seen. There has been no significant change from prior exams. IMPRESSION: BI-RADS Category 1, Negative mammogram. Yearly screening mammography is recommended. Breast Density Category C, heterogeneously Dense. The mammogram demonstrates the patient's breast tissue is dense. Dense breast tissue is very common a nd is not abnormal but dense breast tissue can make it harder to find cancer on a mammogram. Also, de nse breast tissue may increase breast cancer risk. This information about the result of the mammogram report was provided to the patient to raise their awareness. Use this report when you speak with the patient about their risks for breast cancer, which includes their family history. At that time, you may recommend additional screening tests (Ultrasound or MRI) as they might be useful based on their r isk. A negative radiographic report should not delay biopsy if a dominant or clinically suspicious mass is present. Up to ten percent of cancers are not identified on mammography. A negative report may reinforce clinical impression. Adenosis and dense breasts may obscure an underlying neoplasm. False positive reports average 6 to 10%.
== END 2022-10-03 02:25 ==
LOC: DI 02:05
PROVIDERS: PCP Nurse Practitioner Family; Visit Provider Family Medicine
DX: Z12.31 Encounter for screening mammogram for malignant neoplasm of breast (principal)
CPT/HCPCS: 77063; 77067

== ENCOUNTER 2023-03-14 15:00 | Outpatient (CLI) | payer BC, SELFPAY ==
--- NOTE | 2023-03-14 14:30 | DI.RAD_ITS ---
Exam(s) XR SHOULDER RT COMPLETE 2+V EXAM: XR SHOULDER RT COMPLETE 2+V CLINICAL HISTORY: right shoulder pain. TECHNIQUE: 2D digital imaging was performed. Five views. COMPARISON: CR ACROMIO CLAVICULAR JOINTS from 07/21/2013 FINDINGS: BONES: No acute fracture is present. No bony destructive lesion is seen. JOINTS: No dislocation present. No significant degenerative changes at the AC joint or glenohumeral joint. SOFT TISSUE: Normal. IMPRESSION: Unremarkable radiographs of the right shoulder. DATA REPOSITORY: RADIATION DOSE DELIVERED:
== END 2023-03-14 15:01 | disposition home or self-care (01) ==
LOC: DIORS 15:01
PROVIDERS: PCP Nurse Practitioner Family; Referring Provider Nurse Practitioner Family; Visit Provider Student in an Organized Health Care Education/Training Program
DX: M25.511 Pain in right shoulder (principal)
CPT/HCPCS: 73030

== ENCOUNTER → 2023-03-28 01:31 | Outpatient (CLI) | payer BC, SELFPAY ==
--- NOTE | 2023-03-28 08:30 | DI.MRI_ITS ---
Exam(s) MR UPPER JOINT RT WO EXAM: MR UPPER JOINT RT WO CLINICAL HISTORY: R SHOULDER PAIN, ADHESIVE CAPSULITIS RT SHOULDER, BICEPS TENDINITIS,. TECHNIQUE: Multiplanar multisequence MRI was performed. COMPARISON: CR XR SHOULDER RT COMPLETE 2+V from 03/14/2023 FINDINGS: BONES: There is no fracture or contusion pattern. There is a small cyst in the humeral head. JOINTS: Mild degenerative changes are seen at the AC joint. The glenohumeral joint is normal. TENDONS: Supraspinatus: There is a small hyperintense defect on the bursal surface of the supraspinatus tendon suspicious for partial tear. Infraspinatus: Unremarkable. Subscapularis: Tendinosis without evidence of a tear. Teres Minor: Unremarkable. Biceps and [place]: Unremarkable. MUSCLES: Unremarkable. GLENOID LABRUM: Unremarkable on this noncontrast examination. SOFT TISSUES: Unremarkable. LIGAMENTS: Unremarkable. OTHER: Subacromial and subdeltoid bursae are unremarkable. IMPRESSION: 1. Small hyperintense focus on the bursal surface of the supraspinatus tendon consistent with a parti al tear. 2. Mild degenerative changes seen at the AC joint. DATA REPOSITORY:
== END ==
PROVIDERS: PCP Nurse Practitioner Family; Visit Provider Student in an Organized Health Care Education/Training Program
DX: M75.111 Incomplete rotator cuff tear or rupture of right shoulder, not specified as traumatic (principal); M75.21 Bicipital tendinitis, right shoulder
CPT/HCPCS: 73221

== ENCOUNTER 2023-06-29 09:19 | Day surgery (SDC) | payer BC, SELFPAY ==
--- NOTE | 2023-06-29 07:20 | W.PM.DSUDISC ---
Date of service: 06/29/23 Time of Service: 11:30 Discharge Plan Disposition Patient Disposition: Home Condition: Stable Discharge Details Attending Provider: Rj Sanchez Primary Care Provider: Peggy Marroquin Home Meds and New Rx's Prescriptions: New naproxen 250 mg tablet 250 - 500 mg PO BID PRN (Reason: Moderate pain) Qty: 30 0RF tramadol 50 mg tablet 50 mg PO Q8H PRN (Reason: pain, moderate) Qty: 9 0RF Continued estradiol [Vagifem] 10 mcg tablet 10 mcg vaginal .weekly fluticasone propionate 50 mcg/actuation spray,suspension 2 spray intranasal DAILY Rx Instructions: administer into each nostril cholecalciferol (vitamin D3) 10 mcg (400 unit) capsule 20 mcg PO DAILY omeprazole 40 mg capsule,delayed release(DR/EC) 40 mg PO DAILY Botox Cosmetic 50 unit recon soln 10 unit IM ONCE Rx Instructions: Per ENT for migraines unsure of dose citalopram 40 MG tablet 40 mg PO DAILY Discharge Instructions Additional Instructions: Surgery: Right shoulder manipulation under anesthesia Activity: Encourage increasing range of motion. Perform daily stretching exercises. Resume physical therapy tomorrow. Prescriptions: Naproxen 250 mg take 1-2 every 12 hours with a meal as needed for moderate pain Tramadol 50 mg take 1 every 6-8 hours as needed for severe pain You may use [id number] Tylenol (acetaminophen) as needed for mild pain. These pain medications may be taken all at once or in different combinations as needed. Also, recommend Colace (docusate) as a stool softener as surgery and pain medicine cause constipation. You may try [id number] diphenhydramine (Benadryl) 25-50 mg nightly as a sleep aid Dressings: None Follow-up: 10-[address] Sanchez You may take off the leg compression stockings this evening at home. You may also leave them on a few days longer if you have a history of leg swelling or edema. Let us know right away if you develop any redness, drainage, fevers, chest pain, or trouble breathing. Do not drink alcohol or drive for at least 24 hours after anesthesia. Please call the office during business hours with any questions or concerns. Discharge Orders Discharge Orders: Discharge Order (Routine); Ordered 06/29/23 Ordered By: Rj M Korsh DS: Diagnosis Discharge Diagnosis (1) Adhesive capsulitis of right shoulder: Status: Acute
--- NOTE | 2023-06-29 07:20 | W.PM.OP ---
Date of service: 06/29/23 Time of Service: 10:58 Operative Note Operative Note DATE OF PROCEDURE: 06/29/23 PRE-OP DIAGNOSIS: Right shoulder adhesive capsulitis PROCEDURE: Right shoulder manipulation under anesthesia, CPT #33260 SURGEON: Rj Sanchez ANESTHESIA TYPE: General LMA/ETT and Primary Nerve Block Refer to Anesthesia Record ESTIMATED BLOOD LOSS: 0 COMPLICATIONS: None Patient was transported to: same day Patient's condition: stable Indications: Please see complete medical record for details. Findings: Excellent release of adhesions, no instability Procedure Description: In the operating room, general anesthesia was induced. The patient was positioned supine on the stretcher. Preoperative antibiotics were omitted. The correct patient, procedure, and side of the procedure were all verified prior to beginning. The right shoulder was examined with range of motion about 110 degrees forward elevation and 40 degrees external rotation. Internal rotation at about 90 degrees 45 degrees, abduction about 90 degrees. These endpoints had soft-iris feel. A short lever arm and gradual to steady gentle pressure was used to perform the manipulation alternating between external rotation at the side, forward elevation, and abduction with internal and external rotation. Deliberately gradually and carefully excellent releases were felt in forward elevation and external rotation. Less release needed in abduction and internal rotation. Range of motion was then tested and full equal to the contralateral side with about 90 degrees external rotation at the side, 145 degrees forward elevation, and at 90 degrees almost 80 degrees internal rotation and past 90 degrees abduction. All endpoints were gently exaggerated. The shoulder joint remained stable. While the patient remained under anesthesia, all directions were stretched and repeated numerous times. The patient awoke from anesthesia without complication and was transferred to the recovery room in a stable condition.
--- NOTE | 2023-06-29 09:20 | W.ANESPRE ---
General Info Date of Service Date Performed: 06/29/23 Height: 5 ft 1 in Weight: 53.524 kg Body Mass Index (BMI): 22.3 Surgical Procedure: Operation Date: 06/29/23 11:40 Proposed Procedure Side Surgeon p Shoulder Manipulation Right Rj Sanchez MD Meds Allergies and Home Medications Allergies Allergy/AdvReac Type Severity Reaction Status Date / Time Proton Pump Inhibitors Allergy Unknown Verified 06/29/23 09:44 meperidine HCl [From Demerol] AdvReac Mild Nausea Verified 06/29/23 09:44 Home Medication Medication Instructions Recorded citalopram 40 mg tablet 40 mg PO DAILY 07/21/13 cholecalciferol (vitamin D3) 10 20 mcg PO DAILY 01/05/21 mcg (400 unit) capsule estradiol 10 mcg vaginal tablet 10 mcg vaginal .weekly 01/05/21 (Vagifem) fluticasone propionate 50 2 spray intranasal DAILY 01/05/21 mcg/actuation nasal spray,suspension omeprazole 40 mg capsule,delayed 40 mg PO DAILY 01/05/21 release onabotulinumtoxinA (cosmetic) 50 10 unit IM ONCE 08/04/22 unit intramuscular solution (Botox Cosmetic) Current Visit Medications: Current Medications Generic Name Dose Route Start Last Admin Trade Name Freq PRN Reason Stop Dose Admin Acetaminophen 1,000 mg 06/29/23 07:21 Acetaminophen 500 Mg Tab PO 07/29/23 07:20 Q6H PRN PRN Ringer's Solution 1,000 mls @ 30 mls/hr 06/29/23 06:00 IV 06/29/23 23:59 INFUSION [facility] IV Miscellaneous Supplies 1 each 06/29/23 06:00 Iv Access IV 06/29/23 23:59 DIRECTED [facility] Naproxen 250 - 500 mg 06/29/23 07:21 Naproxen 500 Mg Tab PO 07/29/23 07:20 BID PRN PRN Oxycodone HCl 0 mg 06/29/23 07:19 Oxycodone 5 Mg Tab PO 07/29/23 07:18 Q3H PRN PRN Pain Sodium Chloride 0 ml 06/29/23 06:00 Normal Saline Flush 10 Ml Syr IV 06/29/23 23:59 PRN PRN Sodium Chloride 0 ml 06/29/23 06:00 Normal Saline 10 Ml Vial IJ 06/29/23 23:59 DIRECTED PRN Sterile Water 0 ml 06/29/23 06:00 Water,Injection,Sterile 10 Ml Vial IJ 06/29/23 23:59 DIRECTED PRN PFSH Active Problems Active Problems: Problem Status Onset Code Adhesive capsulitis of right shoulder M75.01 Biceps tendinitis of right shoulder M75.21 Raymond's esophagus determined by biopsy K22.70 Tubular adenoma of colon D12.6 Endometriosis N80.9 Osteoporosis M81.0 Screening for colon cancer Z12.11 Lateral epicondylitis, right elbow M77.11 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 Raymond's esophagus with esophagitis K22.70, K20.9 Adhesive capsulitis of left shoulder 08/28/17 M75.02 Impingement syndrome, shoulder, left 04/24/17 M75.42 Incomplete tear of left rotator cuff 06/26/17 M75.112 Superior glenoid labrum lesion of left shoulder, initial encounter 04/24/17 S43.432A Superior glenoid labrum lesion of left shoulder, subsequent encounter 04/24/17 S43.432D Tendinitis of left rotator cuff 04/24/17 M75.82 Medical History Medical History Seasonal allergies Refractory migraine without aura History of postoperative nausea and vomiting Tobacco use GERD (gastroesophageal reflux disease) Bilateral hearing loss Osteopenia Anxiety and depression Medical History Comments:: Pt. states her dad had delirium. Also states when she had her block on the L and felt everything...and when she went in the second time she was given more medication which help Surgical History Surgical History History of shoulder surgery 2017 L History of colonoscopy (~07/2022) History of esophagogastroduodenoscopy (EGD) S/P herniorrhaphy supraumbilical, s/p incarceration. Dr Cristiano Harding, 1970 History of total hysterectomy Tobacco Smoking/Tobacco Use Status: Current every day Tobacco Type: cigarettes Smoking cigarettes per day: 10 Alcohol Alcohol Intake: current Alcohol intake frequency: 0-2 drinks per day Alcohol type: beer and wine Substance Use Substance use: Never Substance use type: does not use Vital Signs and Lab Results Vital Signs Most Recent Vital Signs in EMR: Temp Pulse Resp BP Pulse Ox 36.6 C 70 18 117/71 98 06/29/23 09:50 06/29/23 09:50 06/29/23 09:50 06/29/23 09:50 06/29/23 09:50 Lab Results Blood Type / Crossmatch: No Data to Display Complete Blood Count: No Data to Display Complete Metabolic Panel: No Data to Display Liver Function Panel: No Data to Display Coagulation Panel: No Data to Display Cardiac Panel: No Data to Display Arterial Blood Gas: No Data to Display Venous Blood Gas: No Data to Display Pancreas Panel: No Data to Display Thyroid Panel: No Data to Display Infectious Disease: No Data to Display Blood Cultures: No Data to Display Toxicology Panel: No Data to Display Panel: No Data to Display Anesthesia Assessment and Plan Anesthesia History Personal History: PONV Family History: Other Exercise Tolerance Exercise Tolerance: Metabolic Equivalents>4 Cardiac & Pulmonary Exam Cardiac Exam: Normal S1/S2 Heart Sounds Pulmonary Exam: Clear Bilateral Breath Sounds Implantable Cardiac Device Does patient have a Pacemaker or an ICD?: No Airway Exam Known Difficult Airway: No Mallampati Class: 1 Mouth Opening: Normal (> 3cm) Thyromental Distance: Greater than 3 cm Neck Range of Motion: Full ROM Neck Circumference: Normal Teeth Condition: Normal Dentition ASA Classification ASA Score: ASA 2 Emergency Case?: No NPO Status NPO Status: NPO Clears >2 hours, Solids >8 hours Status Status: History of Hysterectomy Anesthesia Plan Resuscitation Status: Full Code Anesthesia Technique: General Anesthesia Airway Planned: Natural Airway Pain Management: Surgeon and patient request nerve block Monitors Used: Standard Monitors Preoperative Comments:: 52 yo female for shoulder manip. sig phmx: GERD (omeprazole), anxiety/depression (citalopram). smoker, occ etoh, previous anes: - egd/colo, ketamine, prop, ? vomitting at the very end of the colo. - EGD, prop, no issues. - shoulder manip, prop/brian, no issues. - shoulder scope, mac 3 grade 1, easy mask with OPA. ISB (rop, epi, dexameth)
[2023-06-29 09:29] VITALS: BMI 22.3
[2023-06-29 09:50] VITALS: BP 117/71; PULSE 70; RESP 18; TEMP 36.6; O2SAT 98
[2023-06-29 10:19] VITALS: BP 115/74; PULSE 67; PULSE 68; RESP 18; TEMP 36.4; O2SAT 97
--- NOTE | 2023-06-29 10:31 | W.ANESNERVE ---
Nerve Block Single Injection Procedure Date and Time Date Performed: 06/29/23 Procedure Start: 10:26 Location Where Procedure Performed Procedure Location: Day Surgery Unit Reason Performed: Postoperative Analgesia Requesting Provider: Rj Sanchez Timeout Performed Timeout Performed: Yes Monitoring Used ECG, Blood Pressure, SpO2 and ETCO2 Sterility Sterility: Hand Hygiene, Surgical Cap, Surgical Mask, Sterile Gloves and Chlorhexidine Sedation Given During Procedure Sedation Given (Indicate Dose Given): Versed IV Dose:: 2 mg Patient Mental Status Patient Mental Status: Sedate with meaningful communication Nerve Block 1st Nerve Block: Laterality: Right Block Type: Interscalene Ultrasound Image Saved?: Yes Needle / Catheter Used: 100mm SonoPlex II Local Anesthetic Bolus (Indicate Dose Given): Injected in 3-5ml increments after negative blood aspiration, Bupivacaine 0.5% Dose:: 10 mL and Exparel Dose:: 8 mL Additives (Indicate Dose Given): None Ultrasound: Sterile probe cover and gel used Nerve Stimulator: Primary Nerve Stimulator Technique and No twitch or parasthesia noted < 0.5 mA Paresthesia: None Procedure Tolerated: No Complications Procedure Outcome: Successful Performed By: Yoan Ibrahim
[2023-06-29] MEDS: Lactated Ringers 1,000 ML 30 ML IV (10:37)
[2023-06-29 11:05] VITALS: BP 105/70; PULSE 68; RESP 18; TEMP 36.2; O2SAT 94
--- NOTE | 2023-06-29 11:14 | W.ANESPOSTOP ---
Postoperative Evaluation Date, Time and Location Date Performed: 06/29/23 Time Performed: 11:15 Patient Location: Day Surgery Unit Vital Signs Most Recent Imported Vital Signs: Most Recent Vital Signs Temp Pulse Resp BP Pulse Ox 36.2 C L 68 18 105/70 94 06/29/23 11:05 06/29/23 11:05 06/29/23 11:05 06/29/23 11:05 06/29/23 11:05 Pain Score Most Recent Pain Score: Most Recent Pain Score Pain Level 0 06/29/23 11:05 Assessment Mental Status: Awake (Alert & Oriented to Patient Baseline) Airway and Respiratory Function: Patent airway with normal (patient baseline) respiratory exam Cardiovascular Function: Hemodynamically Stable Hydration Status: Adequately Hydrated Nausea & Vomiting: No Nausea or Vomiting Pain: Pt. Denies Any Pain Peripheral Nerve Block: Regional nerve block not resolved at time of post operative discharge
[2023-06-29 11:38] VITALS: BP 115/71; PULSE 69; RESP 20; TEMP 36.6; O2SAT 96
== END 2023-06-29 12:10 | disposition home or self-care (01) ==
LOC: SUR 09:19
PROVIDERS: PCP Nurse Practitioner Family; Visit Provider Student in an Organized Health Care Education/Training Program
PROC: (CPT 23700; principal; 2023-06-29 11:30)
DX: M75.01 Adhesive capsulitis of right shoulder (principal); K21.9 Gastro-esophageal reflux disease without esophagitis; F17.210 Nicotine dependence, cigarettes, uncomplicated
CPT/HCPCS: 23700; J2250; J2405

== ENCOUNTER 2023-08-16 18:31 | Outpatient (REF) | payer BC, SELFPAY ==
[2023-08-16 20:44] LABS: HCT 45.3 % (36.0-46.0); HGB 15.7 g/dL (11.2-15.7); MCH 33.9 pg (27.0-33.0); MCHC 34.7 % (32.0-36.0); MCV 98 fL (80-95); MPV 9.6 fL (8.0-11.0); Platelet Count 303 10^3/uL (130-400); RBC 4.63 10^6/uL (3.93-5.22); RDW 11.9 % (11.7-14.6); RDW-SD 42.9 fL; WBC 11.28 10^3/uL (4.4-10.8)
[2023-08-16 21:23] LABS: Vitamin D 25 Total 19.4 ng/mL (30-100)
[2023-08-16 21:27] LABS: ALT 18 U/L (14-59); AST 15 U/L (15-37); Albumin 4.2 g/dL (3.4-5.0); Alkaline Phosphatase 73 U/L (46-116); BUN 10 mg/dL (7-18); Bilirubin, Total 0.3 mg/dL (0.2-1.0); CREATININE 0.7 mg/dL (0.55-1.02); Calcium 9.5 mg/dL (8.5-10.1); Calculated LDL 93 mg/dL (<100); Chloride 103 mmol/L (98-107); Cholesterol 198 mg/dL (<200); Glucose 89 mg/dL (74-106); HDL Cholesterol 95 mg/dL (40-60); Sodium 140 mmol/L (136-145); Total Protein 7.1 g/dL (6.4-8.2); Triglyceride 52 mg/dL (<150)
== END 2023-08-16 18:32 | disposition home or self-care (01) ==
LOC: NCHCN 18:31
PROVIDERS: PCP Nurse Practitioner Family; Visit Provider Nurse Practitioner Family
DX: Z00.00 Encounter for general adult medical examination without abnormal findings (principal); M81.0 Age-related osteoporosis without current pathological fracture; Z13.220 Encounter for screening for lipoid disorders; Z13.228 Encounter for screening for other metabolic disorders; Z13.0 Encounter for screening for diseases of the blood and blood-forming organs and certain disorders involving the immune mechanism
CPT/HCPCS: 80053; 80061; 82306; 85027

== ENCOUNTER → 2023-10-16 04:06 | Outpatient (CLI) | payer BC, SELFPAY ==
--- NOTE | 2023-10-16 12:45 | DI.MAMMO_ITS ---
Exam(s) MAMMO SCREENING EXAM: MAMMO SCREENING CLINICAL HISTORY: SCREENING MAMMO Z00.00 ADULT HEALTH EXAM. TECHNIQUE: Bilateral full field digital CC and MLO mammographic images were obtained with 3D tomosyn thesis and utilizing computer aided detection (CAD). COMPARISON: Prior mammograms were reviewed. FINDINGS: There has been no significant change in the appearance and distribution of the fibroglandular tissue which is again noted be moderately dense, this decreasing the sensitivity of the mammogram for findin g hidden underlying lesions.. There are no CAD designations. There are no new spiculated masses nor malignant appearing microcalcification groups. There is no significant architectural distortion nor skin thickening-retraction. IMPRESSION: No radiographic evidence of malignancy. BI-RADS Category 1 - Negative Breast Density - Category C - Heterogeneously dense Breast density Category C or D implies that the patient has dense breast tissue. Dense breast tissue can make it harder to find cancer on a mammogram. Dense breast tissue is also associated with an incr eased risk of breast cancer. This information about the result of the mammogram report was provided to the patient to raise their awareness. Use this report when you speak with the patient about their risks for breast cancer, which includes their family history. At that time, you may recommend additional screening tests (Ultrasoun d or MRI) as these tests may add significant information. A negative radiographic report should not delay biopsy if a dominant or clinically suspicious mass is present. Up to ten percent of cancers are not identified on mammography. A negative report may reinforce clinical impression. Adenosis and dense breasts may obscure an underlying neoplasm. False positive reports average 6 to 10%. Patient will receive a letter notifying them of these results.
== END ==
PROVIDERS: PCP Nurse Practitioner Family; Visit Provider Nurse Practitioner Family
DX: Z00.00 Encounter for general adult medical examination without abnormal findings (principal); Z12.31 Encounter for screening mammogram for malignant neoplasm of breast; R92.333 Mammographic heterogeneous density, bilateral breasts
CPT/HCPCS: 77063; 77067

== ENCOUNTER 2024-09-10 18:11 | Outpatient (REF) | payer BC, SELFPAY ==
[2024-09-10 21:55] LABS: HCT 43.6 % (36.0-46.0); HGB 15.4 g/dL (11.2-15.7); MCH 34.5 pg (27.0-33.0); MCHC 35.3 % (32.0-36.0); MCV 98 fL (80-95); Platelet Count 265 10^3/uL (130-400); RBC 4.47 10^6/uL (3.93-5.22); RDW 11.4 % (11.7-14.6); RDW-SD 40.9 fL; WBC 9.72 10^3/uL (4.4-10.8)
[2024-09-10 22:37] LABS: ALT 17 U/L (14-59); AST 16 U/L (15-37); Albumin 4.3 g/dL (3.4-5.0); Alkaline Phosphatase 75 U/L (46-116); Anion Gap 7.2 mmol/L (3-11); BUN 14 mg/dL (7-18); Bilirubin, Total 0.35 mg/dL (0.2-1.0); CO2 28.8 mmol/L (21.0-32.0); CREATININE 0.8 mg/dL (0.55-1.02); Calcium 9.6 mg/dL (8.5-10.1); Chloride 107 mmol/L (98-107); Glucose 85 mg/dL (74-106); Potassium 3.9 mmol/L (3.5-5.1); Sodium 143 mmol/L (136-145); Total Protein 7.1 g/dL (6.4-8.2); Vitamin D 25 Total 19.6 ng/mL (30-100)
== END 2024-09-10 18:12 | disposition home or self-care (01) ==
LOC: NCHCN 18:11
PROVIDERS: PCP Nurse Practitioner Family; Visit Provider Nurse Practitioner Family
DX: N89.8 Other specified noninflammatory disorders of vagina (principal); Z00.00 Encounter for general adult medical examination without abnormal findings; M81.0 Age-related osteoporosis without current pathological fracture
CPT/HCPCS: 80053; 82306; 85027; 87491; 87591; 87480; 87510; 87660

== ENCOUNTER 2024-10-23 01:04 | Outpatient (CLI) | payer BC, SELFPAY ==
--- NOTE | 2024-10-23 | DI.MAMMO_ITS ---
Exam(s) MAMMO SCREENING EXAM: MAMMO SCREENING CLINICAL HISTORY: SCREENING MAMMO Z12.31 TECHNIQUE: Mammograms were interpreted according to the usual protocol including computer analysis w [employer] CAD system, tomosynthesis and C-view imaging. COMPARISON: 2015 through 2023 FINDINGS: The breasts are composed of heterogeneously dense fibroglandular densities, Breast Density category C . No suspicious masses or suspicious microcalcifications are seen. No skin thickening or abnormal axillary lymph nodes are seen. There has been no significant change from prior exams. IMPRESSION: BI-RADS Category 1, Negative mammogram. Yearly screening mammography is recommended. Breast Density Category C, heterogeneously Dense. The mammogram demonstrates the patient's breast tissue is dense. Dense breast tissue is very common a nd is not abnormal but dense breast tissue can make it harder to find cancer on a mammogram. Also, de nse breast tissue may increase breast cancer risk. This information about the result of the mammogram report was provided to the patient to raise their awareness. Use this report when you speak with the patient about their risks for breast cancer, which includes their family history. At that time, you may recommend additional screening tests (Ultrasound or MRI) as they might be useful based on their r isk. A negative radiographic report should not delay biopsy if a dominant or clinically suspicious mass is present. Up to ten percent of cancers are not identified on mammography. A negative report may reinforce clinical impression. Adenosis and dense breasts may obscure an underlying neoplasm. False positive reports average 6 to 10%.
== END 2024-10-23 01:24 ==
LOC: DI 01:04
PROVIDERS: PCP Nurse Practitioner Family; Visit Provider Nurse Practitioner Family
DX: Z12.31 Encounter for screening mammogram for malignant neoplasm of breast (principal); R92.333 Mammographic heterogeneous density, bilateral breasts
CPT/HCPCS: 77063; 77067

== ENCOUNTER 2024-11-14 10:43 | Outpatient (REF) | payer BC, SELFPAY ==
[2024-11-14 14:38] LABS: Vitamin D 25 Total 47 ng/mL (30-100)
== END 2024-11-14 10:44 | disposition home or self-care (01) ==
LOC: NCHCN 10:43
PROVIDERS: PCP Nurse Practitioner Family; Visit Provider Nurse Practitioner Family
DX: M81.0 Age-related osteoporosis without current pathological fracture (principal)
CPT/HCPCS: 82306